=== PATIENT | male | born 1960 | race Caucasian/White ===

== ENCOUNTER 2021-01-02 14:52 | Emergency (ER) | payer SELFPAY ==
[2021-01-02 15:52] LABS: BILIRUBIN - TOTAL 0.1 mg/dL (0.2-1.0); BUN/CREAT RATIO (CALC) 11.8 RATIO; CREATININE 0.68 mg/dL (0.67-1.17); GLOBULIN (CALCULATION) 3.7 g/dL; POTASSIUM 4.2 mmol/L (3.5-5.1); TOTAL PROTEIN 6.7 g/dL (6.4-8.2)
[2021-01-02 16:17] LABS: BASOPHIL 0.6 % (0-2); EOSINOPHIL 1.3 % (0-5); HGB 15.8 g/dl (13.2-18.0); LYMPHOCYTE 33.7 % (15-48); MCH 34.6 pg (25.0-31.0); MCHC 34.3 g/dL (32.0-36.0); MCV 100.9 fL (78.0-100.0); MONOCYTE 8.8 % (0-12); MPV 9.3 fL (6.0-9.5); NEUTROPHIL 55.3 % (41-80); NRBC 0; PLT 208 K/uL (150-400); RBC 4.56 M/uL (4.70-6.00); RDW 15.8 % (11.5-14.0); WBC 6.7 K/uL (4.0-10.5)
[2021-01-02 16:21] LABS: BILIRUBIN NEGATIVE (NEGATIVE); BLOOD 1+ Ery/uL (NEGATIVE); CLARITY CLEAR (CLEAR); COLOR YELLOW (YELLOW); GLUCOSE (U) NORMAL (NORMAL); LEUKOCYTES NEGATIVE Leu/uL (NEGATIVE); NITRITE NEGATIVE (NEGATIVE); PROTEIN NEGATIVE (NEGATIVE); SPECIFIC GRAVITY 1.025 (1.001-1.030); UROBILINOGEN 0.2 mg/dL (0.2-1.0)
[2021-01-02 16:25] LABS: AMPHETAMINES NEGATIVE (NEGATIVE); BARBITURATES NEGATIVE (NEGATIVE); ECSTASY (MDMA) NEGATIVE (NEGATIVE); MARIJUANA (THC) NEGATIVE (NEGATIVE); METHADONE NEGATIVE (NEGATIVE); OPIATES NEGATIVE (NEGATIVE); OXYCODONE NEGATIVE (NEGATIVE)
[2021-01-02 16:27] LABS: INR 0.91 (0.9-1.2); PROTHROMBIN TIME 11.6 SECONDS (11.4-13.6); PTT 30.8 SECONDS (22.2-34.7)
[2021-01-02 16:44] LABS: SQUAMOUS EPITHELIAL CELLS RARE; URINARY RBC RARE
== END 2021-01-02 18:27 | disposition home or self-care (01) ==
LOC: FER 14:52
PROVIDERS: Nurse Practitioner Family
DX: F10.129 Alcohol abuse with intoxication, unspecified (principal); R55 Syncope and collapse; R07.89 Other chest pain; R51.9 Headache, unspecified; J44.9 Chronic obstructive pulmonary disease, unspecified; F17.210 Nicotine dependence, cigarettes, uncomplicated; Z79.899 Other long term (current) drug therapy; Y90.7 Blood alcohol level of 200-239 mg/100 ml
CPT/HCPCS: 36415; 70450; 80053; 80305; 81001; 84484; 85025; 85610; 85730; 93005; G0480; J3411; J3475; J7030